=== PATIENT | female | born 1960 | race Caucasian/White ===

== ENCOUNTER → 2017-01-16 | Outpatient (CLI) | payer BC | LOC: CIMAGING 16:50 | PROVIDERS: ATTEND Family Medicine | DX: N83.201 Unspecified ovarian cyst, right side (principal); Z78.0 Asymptomatic menopausal state | CPT/HCPCS: 76856-PO ==

== ENCOUNTER 2017-09-25 15:40 | Emergency (ER) | payer BC ==
[2017-09-25] MEDS ORDERED: ASPIRIN 325 MG TAB PO ONE (15:57)
--- NOTE | 2017-09-25 15:57 | CPEKG ---
Heart Rate: 58 RR Interval: 1034 P-R Interval: 168 QRSD Interval: 94 QT Interval: 412 QTC Interval: 405 P [place]: 31 QRS [place]: 58 T Wave [place]: 37 EKG Severity - ABNORMAL ECG - EKG Impression: SINUS RHYTHM EKG Impression: NONSPECIFIC T ABNORMALITIES, LATERAL LEADS Electronically Signed By: Kirit Hancock 25-Sep-2017 20:53:39
[2017-09-25 16:04] LABS: PLATELET COUNT 246 10^3/uL (150-400)
--- NOTE | 2017-09-25 16:09 | EDPHY ---
H & P Time Seen by Provider: 09/25/17 16:03 HPI/ROS: Chief complaint. Chest pain HPI. Patient is a 56-year-old female with 2-3 hours of chest discomfort today. She describes left anterior chest pain radiating through to her left shoulder blade. She feels that is hard to take a deep breath. She describes her discomfort as a combination of pinching, burning, pressure. Her symptoms are worse with deep breathing. She also has nausea and dizziness. She frequently has PVCs and takes propranolol for this but this chest discomfort feels different. She also has some pinching inside her left thigh but otherwise no unusual swelling. Travel about 2 weeks ago to [place]. No abdominal pain. Symptoms are worse with deep breathing and not particularly worse with exertion. ROS Constitutional. no fever/chills, no weakness Eyes. no problems with vision ENT. no sore throat, no nasal drainage Cardiovascular. Chest discomfort Respiratory. Discomfort worse with deep breathing. No cough Abdominal. no abdominal pain, no nausea/vomiting, no diarrhea . no problems urinating MS. Pinching in her left thigh without swelling Skin. no rash Lymph. no swollen glands Neuro. no headache, no dizziness, no difficulty walking or with speech Past Medical/Surgical History: Palpitations, migraines, cholecystectomy Social History: Single, nonsmoker, no alcohol Smoking Status: Never smoked Physical Exam: General Appearance: Alert pleasant well-developed female mild distress vital signs are stable Eyes: Pupils equal and round no pallor or injection. ENT, Mouth: Mucous membranes are moist. Respiratory: There are no retractions, lungs are clear to auscultation. Cardiovascular: Regular rate and rhythm. Gastrointestinal: Abdomen is soft and nontender, no masses, bowel sounds normal. Neurological: Awake and alert, sensory and motor exams grossly normal. Skin: Warm and dry, no rashes. Musculoskeletal: Neck is supple nontender. Extremities symmetrical, full range of motion. Psychiatric: Patient is oriented X 3, there is no agitation. Constitutional: Initial Vital Signs Temperature (C) 36.9 C 09/25/17 15:44 Heart Rate 62 09/25/17 15:44 Respiratory Rate 16 09/25/17 15:44 Blood Pressure 124/72 H 09/25/17 15:44 O2 Sat (%) 96 09/25/17 15:44 O2 Delivery Mode Room Air Allergies/Adverse Reactions: tramadol Allergy (Verified 09/25/17 15:43) Home Medications: Medication Instructions Recorded Propranolol HCl 09/25/17 Medical Decision Making - Diagnostics EKG Interpretation: EKG interpreted by me shows normal sinus rhythm with normal interval and axis. QRS is normal there is no significant ST elevation or depression. There is no arrhythmia. The rate is 58 Repeat EKG shows normal sinus rhythm normal interval and axis. QRS is normal there is no significant ST elevation or depression. No arrhythmia. The rate 60 Imaging Results: Imaging Impressions Chest X-Ray 09/25/17 15:57 Impression: No significant radiographic abnormality. Specifically, a source for chest pain is not identified. Chest/Thorax CTA 09/25/17 17:10 Impression: 1. No evidence of pulmonary embolus using CT protocol. 2. Probable sebaceous cyst posterior lateral left chest wall. Clinical correlation suggested. Findings discussed with Kirit Hancock M.D. at 18:08 hour, 09/25/2017. Chest x-ray interpreted by me is normal Procedures: IV normal saline, monitor ED Course/Re-evaluation: Re-evaluation 5:05 p.m.. Patient is stable. She and I discussed imaging and lab results so far. We discussed treatment plan including discussion and recommendation for chest CT. Indication is left chest discomfort worse with deep breathing and inner left thigh pain worrisome for DVT We will also repeat patient's troponin. IV normal saline 1 L Re-evaluation 6:30 p.m.. Patient continues to have pain. Patient and I discussed imaging studies we discussed troponin rising. As the patient continues to have discomfort I have recommended admission. She tells me that she does not wish to stay. We have agreed to repeat the 3rd troponin. Re-evaluation again at 7:50 p.m.. Patient does continue have chest discomfort but she really does not wish to stay. We discussed risks and benefits of this. We discussed criteria for return and importance of follow-up and re- evaluation tomorrow for continuing symptoms. She will be given IV Toradol. Differential Diagnosis: I considered acute AK especially with the 2nd troponin initially increasing however 3rd troponin is normal. 2 EKGs are also normal. Her murmur was normal and chest CT was normal. I suspect that this is musculoskeletal. Patient really does not have risk factors for early coronary artery disease. - Data Points Laboratory Results: Laboratory Results 09/25/17 15:58 09/25/17 15:58 09/25/17 09/25/17 09/25/17 18:44 17:20 15:58 WBC RBC Hgb Hct MCV MCH MCHC RDW Plt Count MPV Neut % (Auto) Lymph % (Auto) [place] % (Auto) Eos % (Auto) Baso % (Auto) Nucleat RBC Rel Count Absolute Neuts (auto) Absolute Lymphs (auto) Absolute Monos (auto) Absolute Eos (auto) Absolute Basos (auto) Absolute Nucleated RBC Immature Gran % Immature Gran # D-Dimer 0.42 ug/mLFEU ug/mLFEU (0.00-0.50) Sodium Potassium Chloride Carbon Dioxide Anion Gap BUN Creatinine Estimated GFR Glucose Calcium Troponin I < 0.012 ng/mL ng/mL 0.023 ng/mL ng/mL (0.000-0.034) (0.000-0.034) 09/25/17 09/25/17 15:58 15:58 WBC 7.54 10^3/uL 10^3/uL (3.80-9.50) RBC 5.20 10^6/uL 10^6/uL (4.18-5.33) Hgb 15.5 g/dL g/dL (12.6-16.3) Hct 45.5 % % (38.0-47.0) MCV 87.5 fL fL (81.5-99.8) MCH 29.8 pg pg (27.9-34.1) MCHC 34.1 g/dL g/dL (32.4-36.7) RDW 13.0 % % (11.5-15.2) Plt Count 246 10^3/uL 10^3/uL (150-400) MPV 9.7 fL fL (8.7-11.7) Neut % (Auto) 55.2 % % (39.3-74.2) Lymph % (Auto) 31.8 % % (15.0-45.0) Travis % (Auto) 8.6 % % (4.5-13.0) Eos % (Auto) 2.8 % % (0.6-7.6) Baso % (Auto) 0.8 % % (0.3-1.7) Nucleat RBC Rel Count 0.0 % % (0.0-0.2) Absolute Neuts (auto) 4.16 10^3/uL 10^3/uL (1.70-6.50) Absolute Lymphs (auto) 2.40 10^3/uL 10^3/uL (1.00-3.00) Absolute Monos (auto) 0.65 10^3/uL 10^3/uL (0.30-0.80) Absolute Eos (auto) 0.21 10^3/uL 10^3/uL (0.03-0.40) Absolute Basos (auto) 0.06 10^3/uL 10^3/uL (0.02-0.10) Absolute Nucleated RBC 0.00 10^3/uL 10^3/uL (0-0.01) Immature Gran % 0.8 % % (0.0-1.1) Immature Gran # 0.06 10^3/uL 10^3/uL (0.00-0.10) D-Dimer Sodium 142 mEq/L mEq/L (135-145) Potassium 4.2 mEq/L mEq/L (3.5-5.2) Chloride 108 mEq/L mEq/L (97-110) Carbon Dioxide 24 mEq/l mEq/l (22-31) Anion Gap 10 mEq/L mEq/L (8-16) BUN 18 mg/dL mg/dL (7-23) Creatinine 0.8 mg/dL mg/dL (0.6-1.0) Estimated GFR > 60 Glucose 94 mg/dL mg/dL (70-100) Calcium 9.8 mg/dL mg/dL (8.5-10.4) Troponin I < 0.012 ng/mL ng/mL (0.000-0.034) Medications Given: Discontinued Medications Aspirin (Aspirin) 325 mg PO EDNOW ONE Stop: 09/25/17 15:58 Last Admin: 09/25/17 16:02 Dose: 325 mg Sodium Chloride (Ns) 1,000 mls @ 0 mls/hr IV ONCE ONE; Wide Open PRN Reason: Protocol Stop: 09/25/17 17:11 Last Admin: 09/25/17 17:20 Dose: 1,000 mls Departure - Departure Disposition: Home, Routine, Self-Care Clinical Impression: Chest pain Qualifiers: Chest pain type: other chest pain Qualified Code(s): R07.89 - Other chest pain ; R07.8 - Other chest pain Condition: Good Instructions: Chest Pain (ED) Additional Instructions: Heat to sore area of chest tonight. Ibuprofen 600 mg every 6 hr for discomfort. Return for worsening chest discomfort or trouble breathing. Recheck in 1 day without fail if not improving Referrals: Olive Jonas [Primary Care Provider] - 1 day, if not improved
[2017-09-25] MEDS ORDERED: NS 1,000 ML IV ONE (17:10)
[2017-09-25] MEDS ORDERED: IOPAMIDOL (ISOVUE 370) 100 ML BTL IV ONE (17:33)
--- NOTE | 2017-09-25 18:55 | CPEKG ---
Heart Rate: 60 RR Interval: 1000 P-R Interval: 168 QRSD Interval: 96 QT Interval: 428 QTC Interval: 428 P [place]: 28 QRS [place]: 43 T Wave [place]: 28 EKG Severity - NORMAL ECG - EKG Impression: SINUS RHYTHM Electronically Signed By: Kirit Hancock 25-Sep-2017 20:53:35
[2017-09-25] MEDS ORDERED: KETOROLAC 30 MG/1 ML SDV IVP ONE (19:56)
[2017-09-25 20:28] VITALS: BP 116/54
== END 2017-09-25 20:35 | disposition home or self-care (01) ==
LOC: EEVIPCON 15:40
DX: R07.89 Other chest pain (principal); E86.9 Volume depletion, unspecified
CPT/HCPCS: 96374; J1885; Q9967